=== PATIENT | male | born 1960 | race Two or more races ===

== ENCOUNTER 2019-01-22 06:45 | Day surgery (SDC) | payer OTHER ==
[~2019-01-22] VITALS: Ht 180.3 cm; Wt 93.9 kg
[2019-01-22] MEDS ORDERED: FAMOTIDINE 20 MG/2 ML VIAL IV PRN (09:00)
[2019-01-22] MEDS ORDERED: ACETAMINOPHEN 325 MG TAB PO PRN (09:00)
--- NOTE | 2019-01-22 09:00 | NUR ---
Pt admitted to room 105B, ambulatory with steady gait. Received report from [facility] nurse Selena. Pt [id number], medical hx obtained from pt. Left AC IV intact with ongoing LR bolus. No c/o chest pain at this time, no c/o discomfort, no signs of distress. Pt oriented to room & unit. Call light within reach.
--- NOTE | 2019-01-22 09:30 | NUR ---
Confirmed with Dr Arina Soni to be discontinued d/t postponed sx. Med not administered.
[2019-01-22 10:10] LABS: BASOPHILS % (AUTO) 0.6 % (0.0-2.0); EOSINOPHILS # (AUTO) 0.1 K/uL (0-0.4); EOSINOPHILS % (AUTO) 1.7 % (0.0-4.0); HEMATOCRIT 44.2 % (36-52); HEMOGLOBIN 15.2 g/dL (12.0-18.0); LYMPHOCYTES # (AUTO) 1.3 K/uL (2.0-11.5); LYMPHOCYTES % (AUTO) 26.4 % (20.5-51.1); MEAN CORPUSCULAR HEMOGLOBIN 31 pg (27-31); MEAN CORPUSCULAR HGB CONC 34 g/dL (33-37); MEAN CORPUSCULAR VOLUME 91.6 fL (80-94); MONOCYTES # (AUTO) 0.4 K/uL (0.8-1.0); MONOCYTES % (AUTO) 8.6 % (1.7-9.3); NEUTROPHILS % (AUTO) 62.7 % (42.2-75.2); PLATELET COUNT (AUTO) 186 K/uL (140-450); RED BLOOD CELL COUNT(AUTO) 4.83 MIL/uL (4.20-6.10); WHITE BLOOD COUNT (AUTO) 4.7 K/uL (4.8-10.8)
[2019-01-22 10:56] LABS: PROTHROMBIN TIME 9.8 secs (10.8-13.4)
[2019-01-22 11:03] LABS: ALBUMIN 3.7 g/dL (3.4-5.0); CHOL/HDL RATIO 5.3 (1-4.5); FREE T4 (FREE THYROXINE) 0.85 ng/dL (0.76-1.46); PHOSPHORUS 3.1 mg/dL (2.5-4.9); THYROID STIMULATING HORMONE 0.85 uIU/mL (0.34-3.74)
--- NOTE | 2019-01-22 11:30 | NUR ---
Pt resting in bed. No signs of distress. No C/O pain. Call light within reach.
[2019-01-22 11:36] LABS: ALBUMIN 3.7 g/dL (3.4-5.0); ANION GAP 13.2 (8-16); CARBON DIOXIDE 26.8 mmol/L (21-32); TOTAL BILIRUBIN 0.5 mg/dL (0.0-1.0)
[2019-01-22 12:00] VITALS: BP 150/97
[2019-01-22] MEDS ORDERED: NACL 0.9% 1,000 ML IV SCH (12:55)
[2019-01-22] MEDS ORDERED: ATORVASTATIN 20 MG TAB PO SCH (13:00)
--- NOTE | 2019-01-22 13:30 | NUR ---
Pt ambulated to the rest room. No signs of distress. No C/O pain. Call light within reach.
[2019-01-22 15:29] VITALS: BP 151/93
[2019-01-22] MEDS ORDERED: PANTOPRAZOLE 40 MG TABEC PO SCH (16:30)
--- NOTE | 2019-01-22 16:48 | NUR ---
Pt resting in bed. No signs of distress. No C/O pain. Call light within reach.
[2019-01-22] MEDS ORDERED: OMEP20TC12 PO (17:57)
[2019-01-22] MEDS ORDERED: ATOR20TA40 PO (17:57)
--- NOTE | 2019-01-22 19:30 | NUR ---
Pt discharged at 1900. Pt belongings with him. At time of discharge pt was ambulating and stable, steady gait. Removed IV from right AC. Catheter intact. No complains to pain.
[2019-01-23] MEDS ORDERED: PANTOPRAZOLE 40 MG TABEC PO SCH (06:30)
[2019-01-23 08:12] LABS: T4 (THYROXINE) 5.6 ug/dL (4.5-12.0)
[2019-01-23] MEDS ORDERED: ATORVASTATIN 20 MG TAB PO SCH (21:00)
== END 2019-01-22 19:15 | disposition home or self-care (01) ==
LOC: MMU 06:45 → MOR 06:45 → MTU 09:00 → MOR 19:15
PROVIDERS: ATTEND Surgery
DX: K42.9 Umbilical hernia without obstruction or gangrene (principal); R07.89 Other chest pain; E78.5 Hyperlipidemia, unspecified; K85.90 Acute pancreatitis without necrosis or infection, unspecified; Z87.891 Personal history of nicotine dependence; Z53.8 Procedure and treatment not carried out for other reasons
CPT/HCPCS: 36415; 71045; 76700; 80053; 80061; 82040; 82140; 82150; 83036; 83605; 83690; 83735; 83880; 84100; 84134; 84436; 84439; 84443; 84484; 85025; 85610; 85730; 87081; 93005; G0378; J7030; J7120; Q0092; J0690; J7060

== ENCOUNTER 2020-03-17 10:47 | Day surgery (SDC) | payer OTHER, SELFPAY ==
[~2020-03-17] VITALS: Ht 177.8 cm; Wt 91.6 kg
[~2020-03-17 10:47] MED LIST: ATOR20TA40 PO; OMEP20TC12 PO
[2020-03-17 11:32] LABS: BASOPHILS % (AUTO) 0.4 % (0.0-2.0); EOSINOPHILS # (AUTO) 0.1 K/uL (0-0.4); EOSINOPHILS % (AUTO) 1.6 % (0.0-4.0); HEMATOCRIT 45.1 % (36-52); HEMOGLOBIN 15.2 g/dL (12.0-18.0); LYMPHOCYTES # (AUTO) 1.3 K/uL (2.0-11.5); MEAN CORPUSCULAR HEMOGLOBIN 31 pg (27-31); MEAN CORPUSCULAR HGB CONC 34 g/dL (33-37); MEAN CORPUSCULAR VOLUME 90.7 fL (80-94); MONOCYTES # (AUTO) 0.4 K/uL (0.8-1.0); MONOCYTES % (AUTO) 8.8 % (1.7-9.3); NEUTROPHILS # (AUTO) 2.9 K/uL (1.8-7.7); NEUTROPHILS % (AUTO) 61.2 % (42.2-75.2); PLATELET COUNT (AUTO) 223 K/uL (140-450); RED BLOOD CELL COUNT(AUTO) 4.98 MIL/uL (4.20-6.10); RED CELL DISTRIBUTION WIDTH 13.6 % (11.6-13.7); WHITE BLOOD COUNT (AUTO) 4.8 K/uL (4.8-10.8)
[2020-03-17 11:41] LABS: ANION GAP 10.9 (8-16); CARBON DIOXIDE 30.5 mmol/L (21-32); POTASSIUM 4.4 mmol/L (3.5-5.1); TOTAL BILIRUBIN 0.4 mg/dL (0.0-1.0)
[2020-03-17] MEDS ORDERED: BUPIVACAINE-MPF 0.25% 30 ML VIAL INJ ONE (12:37)
[2020-03-17] MEDS ORDERED: LIDOCAINE 1% 500 MG/50 ML VIAL ONE (12:37)
[2020-03-17] MEDS ORDERED: BUPIVACAINE-MPF/EPI 0.25% 10 ML VIAL INJ ONE ×2 (12:48→12:49)
[2020-03-17] MEDS ORDERED: DEXAMETHASONE 4 MG/ML VIAL ONE (13:00)
[2020-03-17] MEDS ORDERED: ONDANSETRON 4 MG/2 ML VIAL ONE (13:00)
[2020-03-17] MEDS ORDERED: fentaNYL citrate 0.05 MG/ML VIAL ONE (13:00)
[2020-03-17] MEDS ORDERED: MIDAZOLAM 5 MG/5 ML VIAL ONE (13:00)
[2020-03-17] MEDS ORDERED: LIDOCAINE MPF 2% 100 MG/5 ML VIAL INJ ONE (13:00)
[2020-03-17] MEDS ORDERED: PROPOFOL 200 MG/20 ML VIAL IV ONE (13:00)
[2020-03-17] MEDS ORDERED: ONDANSETRON 4 MG/2 ML VIAL IVP PRN (13:50)
[2020-03-17] MEDS ORDERED: MEPERIDINE 25 MG/ML SYR IVP PRN (13:50)
[2020-03-17] MEDS ORDERED: LACTATED RINGERS 1,000 ML IV SCH (13:50)
[2020-03-17] MEDS ORDERED: ONDANSETRON 4 MG/2 ML VIAL IV PRN (13:50)
[2020-03-17] MEDS ORDERED: MORPHINE SULFATE 4 MG/ML SYR IV PRN (13:50)
[2020-03-17] MEDS ORDERED: diphenhydrAMINE 50 MG/ML VIAL IVP PRN (13:50)
[2020-03-17] MEDS ORDERED: HYDROmorphone 1 MG/ML AMP IVP PRN ×2 (13:50)
[2020-03-17] MEDS ORDERED: MORPHINE SULFATE 2 MG/ML SYR IVP PRN (13:50)
[2020-03-17] MEDS ORDERED: HYDROcodone/APAP 5/325 MG 1 TAB TAB PO PRN (13:50)
[2020-03-17] MEDS ORDERED: LIDOCAINE 1% 500 MG/50 ML VIAL INJ ONE (13:55)
== END 2020-03-17 15:20 | disposition home or self-care (01) ==
LOC: MDS 10:47 → MFCC 10:47 → MDS 15:20
PROVIDERS: ATTEND Surgery
DX: L72.0 Epidermal cyst (principal); K40.90 Unilateral inguinal hernia, without obstruction or gangrene, not specified as recurrent; K42.9 Umbilical hernia without obstruction or gangrene; Z87.891 Personal history of nicotine dependence; Z98.890 Other specified postprocedural states; Z20.828 Contact with and (suspected) exposure to other viral communicable diseases; Z79.899 Other long term (current) drug therapy
CPT/HCPCS: 11402; 36415; 71045; 80053; 85025; 88304; 93005; J0690; J1100; J2001; J2250; J2405; J2704; J3010; J3490; J7060; U0003